=== PATIENT | female | born 1995 | race Caucasian/White ===

== ENCOUNTER → 2018-12-20 | Emergency (ER) | payer SELFPAY ==
--- OUTSIDE RECORDS SUMMARY | 2018-12-21 13:51 | XMS REPORT ---
Author Author JUAN ANTONIO PARK Organization [facility] [place] Address [address] [place] [address] Care Team Providers Care Supervisor Frame Sample And Pattern Name Role Phone JUAN ANTONIO PARK Unavailable PROBLEMS No Known Problems ALLERGIES No Known Allergies ENCOUNTERS Encounter Location Date Diagnosis [facility] [address] [facility] [id number] [place] [address] May, Pain of left sacroiliac joint M53.3 IMMUNIZATIONS No Known Immunizations SOCIAL HISTORY Never Assessed REASON FOR VISIT left lower back pain since this am. denies any injury. reports pain with ambulating et sitting down. trouble walking into the [facility]. bharathi PLAN OF CARE Activity Details Follow Up prn Reason: VITAL SIGNS Height 63 in 2018-06-13 Weight 184.4 lbs 2018-06-13 Temperature 98.6 degrees Fahrenheit 2018-06-13 Heart Rate 76 bpm 2018-06-13 Respiratory Rate 18 2018-06-13 BMI 32.66 kg/m2 2018-06-13 Blood pressure systolic 116 mmHg 2018-06-13 Blood pressure diastolic 70 mmHg 2018-06-13 MEDICATIONS Medication Instructions Dosage Frequency Start Date End Date Duration Status Lamictal 100 MG Orally Twice a day 2 tablets 12h Active Xanax 0.25 MG Orally Twice a day 1 tablet 12h Active Diclofenac Sodium 75 MG Orally Twice a day 1 tablet with food or milk 12h 14 days Active Enskyce 0.15-30 MG-MCG Orally Once a day 1 tablet 24h Active RESULTS No Results PROCEDURES No Known procedures INSTRUCTIONS MEDICATIONS ADMINISTERED No Known Medications MEDICAL (GENERAL) HISTORY Type Description Date Medical History IBS Medical History Anxiety Medical History Major Depressive Disorder Surgical History wisdom teeth extraction 2015 Surgical History T&A 2010 Surgical History Colonoscopy 2012
== END | disposition left against medical advice (07) ==
LOC: ER 13:15
DX: M54.9 Dorsalgia, unspecified (principal)

== ENCOUNTER → 2019-01-30 | Outpatient (CLI) | payer BC ==
--- NOTE | 2019-01-30 14:39 | Diagnostic Imaging Report ---
US NON OB PELVIS COMP/TRANSVAG TECHNIQUE: Transabdominal and transvaginal grayscale, color Doppler and pulse duplex imaging of the pelvis was performed. INDICATION: Abnormal uterine bleeding. COMPARISON: None available. FINDINGS: The uterus measures 8.2 x 3.7 x 3.1 cm. The myometrium is normal in echogenicity without discrete mass. The endometrium is not well appreciated but where seen measures up to 0.6 cm. By transabdominal and transvaginal imaging, both ovaries are obscured by surrounding bowel gas. No free fluid within the pelvis. IMPRESSION: 1. Endometrium is not well visualized on transabdominal or transvaginal imaging. Where seen, it is normal in thickness measuring 0.6 cm. 2. Ovaries are obscured by bowel gas. Dictated by: Dictated on workstation # [id number]
== END ==
LOC: RAD 09:43
PROVIDERS: ATTEND Obstetrics & Gynecology
DX: N93.9 Abnormal uterine and vaginal bleeding, unspecified (principal)
CPT/HCPCS: 76830; 76856

== ENCOUNTER 2020-12-23 00:39 | Emergency (ER) | payer BC, OTHER ==
[~2020-12-23] VITALS: Ht 160 cm; Wt 86.0 kg
--- NOTE | 2020-12-23 01:35 | ED General ---
General Chief Complaint: Dizziness/Syncope Stated Complaint: TOOK WRONG MEDS,SHAKEY,DIZZY,TINGLING,NAUSEA Source of Information: Patient Exam Limitations: No Limitations History of Present Illness Date Seen by Provider: Dec 23, 2020 Time Seen by Provider: 01:10 Initial Comments Patient is a 25-year-old female who presents to the emergency department [facility] with a chief complaint of possible overdose accidentally of her prescription medications. Patient thinks that she accidentally took 2 extra of one of her pills but she is not sure which one. Of her daily medications she takes lamot rigine fluoxetine, naproxen, multiple others. She is not sure again which medication she took. In looking at the dosing of these medications none of these are life threatening and potential overdose of 2 extra tablets. Patient states that she feels a little "out of it". She has some tingling from her fifth fingertips to her elbows in both arms. She states she feels a little bit dizzy. May be some mild nausea. No vomiting. Patient adamantly denies any intent to harm herself. She does have a history of some anxiety and states that she is certain that there is a component of anxiety to the response of taking too much of one of her medications. Patient states she called her medical insurance nurse hotline and they told her that she needed to be seen. She accidentally took too many of these medications at around 9:00 this evening. She denies any recent illnesses such as fevers, chills, cough, congestion. No vomiting or diarrhea. She is currently undergoing a flare of her Crohn's disease but states she has not had any blood in her stool for about a month. All other review of systems reviewed and negative except as stated. Timing/Duration: 4-6 Hours Severity: Mild Associated Systoms: Denies Symptoms Allergies and Home Medications Patient Home Medication List Home Medication List Reviewed: Yes Review of Systems Review of Systems Constitutional: see HPI EENTM: no symptoms reported Respiratory: no symptoms reported Cardiovascular: palpitations Gastrointestinal: nausea (Mild) Genitourinary: no symptoms reported : No Musculoskeletal: no symptoms reported Skin: no symptoms reported Psychiatric/Neurological: Headache (Mild right-sided headache), Paresthesia All Other Systems Reviewed Negative Unless Noted: Yes Past Bdqlzql-Itgmrl-Stjdpe Hx Patient Social History Alcohol Use: Denies Use Smoking Status: Never a Smoker Past Medical History Surgeries: Yes Tonsillectomy Respiratory: No Cardiac: Yes High Cholesterol, Hypertension Neurological: No Genitourinary: No Gastrointestinal: Yes Crohns Disease Musculoskeletal: No Endocrine: No HEENT: No Cancer: No Psychosocial: Yes Anxiety, Depression Integumentary: No Blood Disorders: No Physical Exam Vital Signs Capillary Refill : Height, Weight, BMI Height: '" Weight: lbs. oz. kg; BMI Method: General Appearance: No Apparent Distress, WD/WN Eyes: Bilateral Eye Normal Inspection, Bilateral Eye PERRL, Bilateral Eye EOMI HEENT: PERRL/EOMI Respiratory: Lungs Clear, Normal Breath Sounds, No Accessory Muscle Use, No Respiratory Distress Cardiovascular: Regular Rate, Rhythm Gastrointestinal: Non Tender, Soft Extremity: Normal Inspection, Non Tender Neurologic/Psychiatric: Alert, Oriented x3, No Motor/Sensory Deficits Skin: Normal Color, Warm/Dry Progress/Results/Core Measures Suspected Sepsis SIRS Temperature: Pulse: Respiratory Rate: Blood Pressure / Mean: Results/Orders Vital Signs/I&O Capillary Refill : Progress Note : Time: 01:38 Progress Note Patient was initially quite tachycardic and hypertensive prior to my interaction with her. As I talked to her and reassured her that none of the medications would be harmful an overdose of 2 tablets her heart rate came down into the mid 90s. Her blood pressure came down nicely as well. Patient is reassured. She is grateful for the reassurance. She verbalizes understanding of her discharge instructions. All questions are sought and answered. Patient is stable for discharge. Departure Impression Primary Impression: Accidental overdose Qualified Codes: T50.901A - Poisoning by unspecified drugs, medicaments and biological substances, accidental (unintentional), initial encounter Disposition: 01 HOME, SELF-CARE Condition: Stable Departure-Patient Inst. Decision time for Depature: 01:36 Referrals: NO,LOCAL PHYSICIAN (PCP/Family) Primary Care Physician Patient Instructions: Accidental Overdose (DC) Add. Discharge Instructions: Follow-up with your GI doctor regarding your Crohn's disease as scheduled. Use care and caution when taking your home daily medications in the evenings. Return to the emergency department for any worsening symptoms, new emergent concerns. AUTUMN MERRITT MD Dec 23, 2020 01:35
[2020-12-23 01:44] VITALS: BP 140/94
[2020-12-23] MEDS ORDERED: ACETAMINOPHEN 500 MG TAB (TYLENOL) PO ONE (01:45)
== END 2020-12-23 01:45 | disposition home or self-care (01) ==
LOC: EDUNIT# 00:39 → ER 00:43
DX: T42.6X1A Poisoning by other antiepileptic and sedative-hypnotic drugs, accidental (unintentional), initial encounter (principal); F41.9 Anxiety disorder, unspecified; K50.90 Crohn's disease, unspecified, without complications
CPT/HCPCS: 99283

== ENCOUNTER 2021-06-19 17:29 | Emergency (ER) | payer OTHER ==
[~2021-06-19] VITALS: Ht 160 cm; Wt 75.0 kg
--- OUTSIDE RECORDS SUMMARY | 2021-06-19 17:34 | XMS REPORT | Clinical Summary ---
Author Author [facility] Organization [facility] Address Unknown Phone Unavailable Care Team Providers Care Ela Teacher Name Role Phone No, Pcp CHIEF MERCHANDISING OFFICER PP Unavailable Allergies Comments Active Allergy Reactions Severity Noted Date "Chest pain" Sumatriptan-Naproxen Other (See 01/21/2021 Comments) Medications End Date Status Medication Sig Dispensed Refills Start Date Active Enskyce 0.15-0.03 mg TAKE ONE 0 tablet TABLET DAILY 1 FOR 21 DAYS OF ACTIVE TABLETS THEN SKIP PLACEBOS AND START THE NEXT PACK FOR 2 MONTHS. THIRD MONTH TAKE PLACEBOS Active famotidine (PEPCID) 40 MG TAKE 1 TABLET 0 03/0 tablet BY MOUTH AT 1 BEDTIME Active hyoscyamine (LEVSIN/SL) DISSOLVE 1 0 0.125 mg SL tablet TABLET UNDER 1 THE TONGUE EVERY 4 HOURS Active mesalamine (LIALDA) 1.2 TAKE 4 0 gram EC tablet TABLETS BY 1 MOUTH ONCE DAILY Active Problems No known active problems Encounters Care Team Description Date Type Specialty Tahira Garcia NP Contact with and (suspected) exposure to covid-19 (Primary Dx) 05/17/2021 Office Visit Progress Notes - Annetta Valadez - 05/17/2021 4:30 PM CDT Self Swab Type: Anterior Nasal from Last 3 Months Social History Date Tobacco Use Types Packs/Day Years Used Never Smoker Smokeless Tobacco: Never Used Sex Assigned at Date Recorded Not on file Last Filed Vital Signs Reading Time Taken Comments Vital Sign 110/80 01/21/2021 3:08 PM CDT Blood Pressure 98 01/21/2021 3:08 PM CDT Pulse 36.2 C (97.2 F) 01/21/2021 2:30 PM CDT Temperature 16 01/21/2021 3:08 PM CDT Respiratory Rate 99% 01/21/2021 3:08 PM CDT Oxygen Saturation - - Inhaled Oxygen Concentration 87.5 kg (193 lb) 01/21/2021 3:08 PM CDT Weight 160 cm (5' 3") 01/21/2021 3:08 PM CDT Height 34.19 01/21/2021 3:08 PM CDT Body Mass Index Plan of Treatment Health Maintenance Due Date Last Done Comments Cervical Cancer: 2014 Screening Procedures Comments Procedure Name Priority Date/Time Associated Diag nosis SARS-COV-2 RNA, QL NAAT, Routine 05/17/[address] with and RT PCR/TMA (COVID-19) 4:22 PM CDT (suspected) exp osure to covid-19 from Last 3 Months Results * SARS-COV-2 RNA, QL NAAT, RT PCR/TMA (COVID-19) (05/17/2021 4:22 PM CDT) [facility] Not Detected Not Detected [facility] 1 SARS-COV-2 RNA, Comment: QL NAAT, RT This nucleic acid PCR/TMA amplification test was (COVID-19) developed and its performan ce characteristics determined by [facility]. Nucleic acid amplification tests include RT-PCR and TMA. This test has not been FDA cleared or approved. This test has been authorized by FDA under an Emergency Use Authorization (EUA). This test is only authorized for the duration of time the declaration that circumstances exist justifying the authorization of the emergency use of in vitro diagnostic tests for detection of SARS-CoV-2 virus and/or diagnosis of COVID-19 infection under section 564(b)(1) of the Act, 21 U.S.C. 360bbb-3(b) (1), unless the authorization is terminated or revoked sooner. When diagnostic testing is negative, the possibility of a false negative result should be considered in the context of a patient's recent exposures and the presence of clinical signs and symptoms consistent with COVID-19. An individual without symptoms of COVID-19 and who is not shedding SARS-CoV-2 virus would expect to have a negative (not detected) result in this assay. Specimen Narrative [facility] - 05/21/2021 2:05 AM CDT Performed at: - [facility] [place] [address] [address], [place], [place] [id number] Vocational School Teacher: Clyde Astudillo MD, Phone: [phone] Performing Organization Address City/State/ZIP Code P nancy Number [facility] [address] [place], [place] [phone] [facility] 1 from Last 3 Months Insurance Type Payer Benefit Subscriber ID Effective Phone Address Plan / Dates Group [employer] [id number] 2020- [employer] Present AM[employer] Care Teams Start Date End Date Ela Teacher Relationship Specialty 09/21/20 No, Pcp, CHIEF MERCHANDISING OFFICER PCP - General Family N/A Do not use Medicine
--- OUTSIDE RECORDS SUMMARY | 2021-06-19 17:34 | XMS REPORT | Encounter Summary ---
Author Author [facility] Organization [facility] Address Unknown Phone Unavailable Care Team Providers Care Ict Teacher Name Role Phone No, Pcp PREPARATION ROOM MANAGER PCP Unavailable Reason for Visit * Reason Comments Covid-19 Send Out Testing Encounter Details Care Team Description Date Type Department Tahira Garcia NP [address] [place] [address] Contact with and (suspected) exposure to covid-19 (Primary Dx) 05/17/2021 Office Visit [facility] Covid - 19 Testing Site [address] [place] [address] Social History Date Tobacco Use Types Packs/Day Years Used Never Smoker Smokeless Tobacco: Never Used Sex Assigned at Date Recorded Not on file documented as of this encounter Last Filed Vital Signs Not on filedocumented in this encounter Functional Status Date of Assessment Functional Status Response Is the person deaf or does he/she have serious difficulty hearing? Is this person blind or does he/she hav e serious difficulty seeing even when wearing gla sses? Does this person have serious difficult y walking or climbing stairs? Does this person have difficulty dressi ng or bathing? Because of a physical, mental, or emoti onal condition, does this person have diffic ulty doing errands alone such as visiting a doctor 's office or shopping? Date of Assessment Cognitive Status Response Because of a physical, mental, or emoti onal condition, does this person have seriou s difficulty concentrating, remembering, or making decisions? documented as of this encounter Patient Instructions * Patient Instructions* Annetta Valadez - 05/17/2021 4:30 PM CDT Seek immediate emergency medical attention if you experience severe or worsening abdominal pain, difficulty swallowing, stiff neck, shortness of breath, coughing or vomiting up blood, chest pain, increased fever, unexplained weight loss, or blood in stool. Follow up with you primary care provider for questions or any new symptoms documented in this encounter Progress Notes * Annetta Lott Rory - 05/17/2021 4:30 PM CDT Self Swab Type: Anterior Nasal documented in this encounter Plan of Treatment Not on filedocumented as of this encounter Goals Not on filedocumented as of this encounter Procedures Comments Procedure Name Priority Date/Time Associated Diag nosis SARS-COV-2 RNA, QL NAAT, Routine 05/17/[address] with and RT PCR/TMA (COVID-19) 4:22 PM CDT (suspected) exp osure to covid-19 documented in this encounter Results * SARS-COV-2 RNA, QL NAAT, RT PCR/TMA (COVID-19) (05/17/2021 4:22 PM CDT) [facility] Not Detected Not Detected [facility] 1 SARS-COV-2 RNA, Comment: QL NAAT, RT This nucleic acid PCR/TMA amplification test was (COVID-19) developed and its performan ce characteristics determined by [facility]. Nucleic acid amplification tests include RT-PCR and [...] detected) result in this assay. Specimen Narrative [facility] - 05/21/2021 2:05 AM CDT Performed at: - [facility] [place] [address], [place], [place] [id number] Shipping And Receiving Coordinator: Clyde Astudillo MD, Phone: [phone] Performing Organization Address City/State/ZIP Code P nancy Number [facility] [address] [place], [place] [phone] [facility] 1 documented in this encounter Visit Diagnoses Diagnosis Contact with and (suspected) exposure t o covid-19 - Primary documented in this encounter Administered Medications Not on filedocumented in this encounter Additional Health Concerns Not on filedocumented as of this encounter Care Teams Start Date End Date Ict Teacher Relationship Specialty 09/21/20 No, Pcp, PREPARATION ROOM MANAGER PCP - General Family N/A Do not use Medicine documented as of this encounter
[2021-06-19] MEDS ORDERED: PROCHLORPERAZINE 10 MG/2ML INJ (COMPAZINE) IM ONE (17:45)
[2021-06-19] MEDS ORDERED: diphenhydrAMINE 50 MG/ML INJ (BENADRYL) IM ONE (17:45)
--- NOTE | 2021-06-19 17:50 | ED Headache ---
General Chief Complaint: Head/Cervical Problems Stated Complaint: HEADACHE Source: patient Exam Limitations: no limitations History of Present Illness Date Seen by Provider: Jun 19, 2021 Time Seen by Provider: 17:48 Initial Comments To ER by private vehicle with reports of a left temporal headache sharp in nature associated with photophobia and nausea for 3 days. History of migraines and is allergic to Treximet. She is taking Excedrin without relief. History of Crohn's disease on mesalamine. Timing/Duration: 1 week Severity/Quality: moderate Associated Symptoms: denies symptoms Allergies and Home Medications Allergies Coded Allergies: naproxen (Verified Allergy, Unknown, 12/23/20) sumatriptan (Verified Allergy, Unknown, 12/23/20) Patient Home Medication List Home Medication List Reviewed: Yes Review of Systems Review of Systems Constitutional: see HPI Eyes: No Symptoms Reported Ears, Nose, Mouth, Throat: no symptoms reported Respiratory: no symptoms reported Cardiovascular: no symptoms reported Genitourinary: no symptoms reported Musculoskeletal: no symptoms reported Skin: no symptoms reported Psychiatric/Neurological: No Symptoms Reported Past Nsgmjwb-Ofuklr-Nowqsr Hx Patient Social History Tobacco Use?: No Use of E-Cig and/or Vaping dev: No Substance use?: No Alcohol Use?: No Pt feels they are or have been: No Immunizations Up To Date Influenza Vaccine Up-to-Date: No; Not Current Second COVID19 Vaccination Ignacio: 02/08 COVID19 Vaccine Sewing Teacher: Jim Past Medical History Surgeries: Yes Tonsillectomy Respiratory: No Cardiac: Yes High Cholesterol, Hypertension Neurological: No Genitourinary: No Gastrointestinal: Yes Crohns Disease Musculoskeletal: No Endocrine: No HEENT: No Cancer: No Psychosocial: Yes Anxiety, Depression Integumentary: No Blood Disorders: No Physical Exam Vital Signs Vital Signs - First Documented 06/19/21 17:45 Temp 36.4 Pulse 92 Resp 18 B/P (MAP) 157/102 (120) Pulse Ox 98 O2 Delivery Room Air Capillary Refill : Height, Weight, BMI Height: '" Weight: lbs. oz. kg; 33.00 BMI Method: General Appearance: WD/WN, no apparent distress HEENT: PERRL/EOMI, normal ENT inspection Neck: non-tender, full range of motion Respiratory: no respiratory distress, no accessory muscle use Gastrointestinal: normal bowel sounds, non tender Extremities: normal range of motion, non-tender Psychiatric: alert, oriented x 3 Crainal Nerves: normal hearing, normal speech, PERRL Skin: normal color, warm/dry Progress/Results/Core Measures Results/Orders My Orders Orders - DAQUAN ROWE APRN Diphenhydramine Injection (Benadryl Inje (06/19/21 17:45) Prochlorperazine Injection (Compazine In (06/19/21 17:45) Medications Given in ED Current Medications Medications Dose Ordered Sig/Crissy Route Start Time Stop Time Status Last Admin Dose Admin Diphenhydramine HCl 50 mg ONCE ONCE IM 06/19/21 17:45 06/19/21 17:47 DC 06/19/21 17:57 50 MG Prochlorperazine Edisylate 10 mg ONCE ONCE IM 06/19/21 17:45 06/19/21 17:47 DC 06/19/21 17:58 10 MG Vital Signs/I&O 06/19/21 17:45 Temp 36.4 Pulse 92 Resp 18 B/P (MAP) 157/102 (120) Pulse Ox 98 O2 Delivery Room Air Departure Impression Primary Impression: Headache Disposition: HOME, SELF-CARE Condition: Stable Departure-Patient Inst. Decision time for Depature: 17:55 Referrals: NO,LOCAL PHYSICIAN (PCP/Family) Primary Care Physician Patient Instructions: Headache, Adult (JAIDA) DAQUAN ROWE APRN Jun 19, 2021 17:50
[2021-06-19 18:50] VITALS: BP 134/84
== END 2021-06-19 18:47 | disposition home or self-care (01) ==
LOC: EDUNIT# 17:29 → ER 17:31
DX: G43.909 Migraine, unspecified, not intractable, without status migrainosus (principal); I10 Essential (primary) hypertension; Z87.19 Personal history of other diseases of the digestive system; Z88.8 Allergy status to other drugs, medicaments and biological substances; Z79.899 Other long term (current) drug therapy
CPT/HCPCS: 99284

== ENCOUNTER 2021-07-28 13:23 | Emergency (ER) | payer OTHER ==
[~2021-07-28] VITALS: Ht 160 cm; Wt 83.0 kg
[2021-07-28 13:57] LABS: BILIRUBIN,URINE NEGATIVE (NEGATIVE); CLARITY,URINE CLEAR; COLOR,URINE YELLOW; GLUCOSE, URINE (UA) NEGATIVE (NEGATIVE); KETONES,URINE NEGATIVE (NEGATIVE); LEUKOCYTE ESTERASE ,URINE 1+ (NEGATIVE); NITRITE,URINE NEGATIVE (NEGATIVE); PROTEIN,URINE NEGATIVE (NEGATIVE)
--- NOTE | 2021-07-28 13:57 | ED General ---
General Stated Complaint: ABNORMAL EKG Source of Information: Patient Exam Limitations: No Limitations History of Present Illness Date Seen by Provider: Jul 28, 2021 Time Seen by Provider: 13:55 Initial Comments Sent to ER from [facility] with reports that she does not feel right. She has had an irregular heart rate. Symptoms began after starting Topamax yesterday for migraines believed to be caused by control. She denies lightheadedness or chest pain. Timing/Duration: 1-2 Days Severity: Moderate Modifying Factors: improves with Medication Allergies and Home Medications Allergies Coded Allergies: naproxen (Verified Allergy, Unknown, 12/23/20) sumatriptan (Verified Allergy, Unknown, 12/23/20) Patient Home Medication List Home Medication List Reviewed: Yes Review of Systems Review of Systems Constitutional: see HPI EENTM: see HPI Respiratory: no symptoms reported Cardiovascular: no symptoms reported Genitourinary: no symptoms reported Musculoskeletal: no symptoms reported Skin: no symptoms reported Psychiatric/Neurological: See HPI Hematologic/Lymphatic: No Symptoms Reported Immunological/Allergic: no symptoms reported Past [id number]-[id number]-Vxrbdm Hx Immunizations Up To Date Second COVID19 Vaccination Ignacio: 02/08 Past Medical History Surgeries: Yes Tonsillectomy Respiratory: No Cardiac: Yes High Cholesterol, Hypertension Neurological: No Genitourinary: No Gastrointestinal: Yes Crohns Disease Musculoskeletal: No Endocrine: No HEENT: No Cancer: No Psychosocial: Yes Anxiety, Depression Integumentary: No Blood Disorders: No Physical Exam Vital Signs Vital Signs - First Documented 07/28/21 13:37 Temp 37.3 Pulse 115 Resp 20 B/P (MAP) 126/93 (104) Pulse Ox 98 O2 Delivery Room Air Capillary Refill : Height, Weight, BMI Height: '" Weight: lbs. oz. kg; 29.00 BMI Method: General Appearance: No Apparent Distress, WD/WN, Other (bp 150/100, hr 117 sinus) Eyes: Bilateral Eye Normal Inspection, Bilateral Eye PERRL, Bilateral Eye EOMI HEENT: PERRL/EOMI, TMs Normal Neck: Full Range of Motion, Normal Inspection Respiratory: Normal Breath Sounds, No Accessory Muscle Use, No Respiratory Distress Cardiovascular: Regular Rate, Rhythm, Normal Peripheral Pulses Gastrointestinal: Normal Bowel Sounds, Non Tender, Soft Extremity: Normal Capillary Refill, Normal Inspection Neurologic/Psychiatric: Alert, Oriented x3 Skin: Normal Color, Warm/Dry Progress/Results/Core Measures Suspected Sepsis SIRS Temperature: Pulse: Respiratory Rate: Laboratory Tests 07/28/21 14:00: White Blood Count 8.1 Blood Pressure / Mean: Laboratory Tests 07/28/21 14:00: Creatinine 0.77, Platelet Count 412H, Total Bilirubin 0.4 Results/Orders Lab Results Laboratory Tests Test 07/28/21 13:48 07/28/21 14:00 Range/Units Urine Color YELLOW Urine Clarity CLEAR Urine pH 8.0 5-9 Urine Specific [place] 1.015 L 1.016-1.022 Urine Protein NEGATIVE NEGATIVE Urine Glucose (UA) NEGATIVE NEGATIVE Urine Ketones NEGATIVE NEGATIVE Urine Nitrite NEGATIVE NEGATIVE Urine Bilirubin NEGATIVE NEGATIVE Urine Urobilinogen 0.2 < = 1.0 MG/DL Urine Leukocyte Esterase 1+ H NEGATIVE Urine RBC (Auto) NEGATIVE NEGATIVE Urine RBC NONE /HPF Urine WBC 10-25 H /HPF Urine Squamous Epithelial Cells 5-10 /HPF Urine Crystals NONE /LPF Urine Bacteria FEW H /HPF Urine Casts NONE /LPF Urine Mucus NEGATIVE /LPF Urine Culture Indicated YES Urine Opiates Screen NEGATIVE NEGATIVE Urine Oxycodone Screen NEGATIVE NEGATIVE Urine Methadone Screen NEGATIVE NEGATIVE Urine Propoxyphene Screen NEGATIVE NEGATIVE Urine Barbiturates Screen NEGATIVE NEGATIVE Ur Tricyclic Antidepressants Screen NEGATIVE NEGATIVE Urine Phencyclidine Screen NEGATIVE NEGATIVE Urine Amphetamines Screen NEGATIVE NEGATIVE Urine Methamphetamines Screen NEGATIVE NEGATIVE Urine Benzodiazepines Screen NEGATIVE NEGATIVE Urine Cocaine Screen NEGATIVE NEGATIVE Urine Cannabinoids Screen NEGATIVE NEGATIVE White Blood Count 8.1 4.3-11.0 10^3/uL Red Blood Count 4.61 3.80-5.11 10^6/uL Hemoglobin 13.8 11.5-16.0 g/dL Hematocrit 41 35-52 % Mean Corpuscular Volume 89 80-99 fL Mean Corpuscular Hemoglobin 30 25-34 pg Mean Corpuscular Hemoglobin Concent 34 32-36 g/dL Red Cell Distribution Width 12.0 10.0-14.5 % Platelet Count 412 H 130-400 10^3/uL Mean Platelet Volume 8.9 L 9.0-12.2 fL Immature Granulocyte % (Auto) 0 % Neutrophils (%) (Auto) 76 H 42-75 % Lymphocytes (%) (Auto) 18 12-44 % Monocytes (%) (Auto) 5 0-12 % Eosinophils (%) (Auto) 1 0-10 % Basophils (%) (Auto) 1 0-10 % Neutrophils # (Auto) 6.2 1.8-7.8 10^3/uL Lymphocytes # (Auto) 1.5 1.0-4.0 10^3/uL Monocytes # (Auto) 0.4 0.0-1.0 10^3/uL Eosinophils # (Auto) 0.0 0.0-0.3 10^3/uL Basophils # (Auto) 0.0 0.0-0.1 10^3/uL Immature Granulocyte # (Auto) 0.0 0.0-0.1 10^3/uL Sodium Level 138 135-145 MMOL/L Potassium Level 3.7 3.6-5.0 MMOL/L Chloride Level 106 98-107 MMOL/L Carbon Dioxide Level 19 L 21-32 MMOL/L Anion Gap 13 5-14 MMOL/L Blood Urea Nitrogen 7 7-18 MG/DL Creatinine 0.77 0.60-1.30 MG/DL Estimat Glomerular Filtration Rate 89 BUN/Creatinine Ratio 9 Glucose Level 92 70-105 MG/DL Calcium Level 10.2 H 8.5-10.1 MG/DL Corrected Calcium 9.9 8.5-10.1 MG/DL Magnesium Level 1.9 1.6-2.4 MG/DL Total Bilirubin 0.4 0.1-1.0 MG/DL Aspartate Amino Transf (AST/SGOT) 16 5-34 U/L Alanine Aminotransferase (ALT/SGPT) 13 0-55 U/L Alkaline Phosphatase 73 40-136 U/L Total Protein 8.1 6.4-8.2 GM/DL Albumin 4.4 3.2-4.5 GM/DL Thyroid Stimulating Hormone (TSH) 1.48 0.35-4.94 UIU/ML Serum Test, Qualitative NEGATIVE NEGATIVE My Orders Orders - DAQUAN ROWE APRN Ekg Tracing (07/28/21 13:39) Cbc With Automated Diff (07/28/21 13:39) Comprehensive Metabolic Panel (07/28/21 13:39) Fibrin Degradation Products (07/28/21 13:39) Magnesium (07/28/21 13:39) Ua Culture If Indicated (07/28/21 13:39) Drug Screen Stat (Urine) (07/28/21 13:39) Ed Iv/Invasive Line Start (07/28/21 13:39) Hcg,Qualitative Serum (07/28/21 13:39) Thyroid Stimulating Hormone (07/28/21 13:39) Lorazepam Injection (Ativan Injection) (07/28/21 14:00) Lactated Ringers (Lr 1000 Ml Iv Solution (07/28/21 14:00) Urine Culture (07/28/21 13:48) Ceftriaxone (Rocephin) (07/28/21 15:00) Medications Given in ED Current Medications Medications Dose Ordered Sig/Crissy Route Start Time Stop Time Status Last Admin Dose Admin Lorazepam 0.5 mg ONCE PRN IVP 07/28/21 14:00 07/28/21 14:13 0.5 MG Vital Signs/I&O 07/28/21 13:37 Temp 37.3 Pulse 115 Resp 20 B/P (MAP) 126/93 (104) Pulse Ox 98 O2 Delivery Room Air Capillary Refill : Departure Communication (Admissions) EKG shows sinus tachycardia at [address] segment change Impression Primary Impression: Palpitations Additional Impressions: Medication side effect UTI (urinary tract infection) Disposition: 01 HOME, SELF-CARE Condition: Stable Departure-Patient Inst. Decision time for Depature: 14:59 Referrals: NO,LOCAL PHYSICIAN (PCP/Family) Primary Care Physician Patient Instructions: Palpitations (DC) Add. Discharge Instructions: 1. Do not take any more of the Topamax. Start the antibiotic as directed tomorrow. Return to ER for any worsening. Scripts Cephalexin (Cephalexin) 500 Mg Tablet 500 MG PO TID, #15 TAB 0 Refills Prov: DAQUAN ROWE APRN 07/28/21 DAQUAN ROWE APRN Jul 28, 2021 13:57
[2021-07-28] MEDS ORDERED: LACTATED RINGERS 1,000 ML IV SCH (14:00)
[2021-07-28] MEDS ORDERED: LORazepam INJ 2 MG/ML (ATIVAN) VIAL IVP PRN (14:00)
[2021-07-28 14:07] LABS: BASOPHILS % (AUTO) 1 % (0-10); EOSINOPHILS % (AUTO) 1 % (0-10); HEMATOCRIT 41 % (35-52); HEMOGLOBIN 13.8 g/dL (11.5-16.0); LYMPHOCYTES # (AUTO) 1.5 10^3/uL (1.0-4.0); LYMPHOCYTES % (AUTO) 18 % (12-44); MEAN CORPUSCULAR HEMOGLOBIN 30 pg (25-34); MEAN CORPUSCULAR HGB CONC 34 g/dL (32-36); MEAN CORPUSCULAR VOLUME 89 fL (80-99); MEAN PLATELET VOLUME 8.9 fL (9.0-12.2); MONOCYTES # (AUTO) 0.4 10^3/uL (0.0-1.0); MONOCYTES % (AUTO) 5 % (0-12); NEUTROPHILS # (AUTO) 6.2 10^3/uL (1.8-7.8); NEUTROPHILS % (AUTO) 76 % (42-75); PLATELET COUNT 412 10^3/uL (130-400); WHITE BLOOD COUNT 8.1 10^3/uL (4.3-11.0)
[2021-07-28 14:08] LABS: BACTERIA,URINE FEW /HPF
[2021-07-28 14:13] LABS: AMPHETAMINE SCREEN, URINE NEGATIVE (NEGATIVE); BARBITURATE SCREEN URINE NEGATIVE (NEGATIVE); BENZODIAZEPINES SCREEN URINE NEGATIVE (NEGATIVE); CANNABINOID SCREEN, URINE NEGATIVE (NEGATIVE); COCAINE SCREEN URINE NEGATIVE (NEGATIVE); METHADONE STAT NEGATIVE (NEGATIVE); METHAMPHETAMINE SCREEN URINE S NEGATIVE (NEGATIVE); OPIATE SCREEN URINE NEGATIVE (NEGATIVE); OXYCODONE STAT NEGATIVE (NEGATIVE); PROPOXYPHENE STAT NEGATIVE (NEGATIVE); TRICYCLIC ANTIDEPRESSANTS SCRE NEGATIVE (NEGATIVE)
[2021-07-28 14:14] LABS: ALBUMIN 4.4 GM/DL (3.2-4.5)
[2021-07-28 14:15] LABS: POTASSIUM 3.7 MMOL/L (3.6-5.0)
[2021-07-28 14:16] LABS: CALCIUM 10.2 MG/DL (8.5-10.1)
[2021-07-28 14:17] LABS: TOTAL PROTEIN 8.1 GM/DL (6.4-8.2)
[2021-07-28 14:19] LABS: BILIRUBIN,TOTAL 0.4 MG/DL (0.1-1.0)
[2021-07-28 14:21] LABS: CREATININE SERUM 0.77 MG/DL (0.60-1.30)
[2021-07-28 14:24] LABS: MAGNESIUM 1.9 MG/DL (1.6-2.4)
[2021-07-28] MEDS ORDERED: cefTRIAXone 1,000 MG in WATER (STERILE) FOR INJECTION 10 ML IV ONE (15:00)
[2021-07-28] MEDS ORDERED: CEPH500T PO (15:13)
[2021-07-28 15:30] VITALS: BP 116/77
== END 2021-07-28 15:30 | disposition home or self-care (01) ==
LOC: EDUNIT# 13:23 → ER 13:24
DX: R00.2 Palpitations (principal); T42.6X5A Adverse effect of other antiepileptic and sedative-hypnotic drugs, initial encounter; N39.0 Urinary tract infection, site not specified; I10 Essential (primary) hypertension
CPT/HCPCS: 36415; 80053; 80306; 81000; 83735; 84443; 84703; 85025; 87088; 93005